=== PATIENT | female | born 1955 | race Two or more races ===

== ENCOUNTER 2022-12-13 09:27 | Emergency (ER) | payer OTHER ==
[~2022-12-13] VITALS: Ht 167.6 cm; Wt 60.3 kg
[2022-12-13] MEDS ORDERED: HYDROCHLOROTHIA50 MG PO (09:41)
[2022-12-13 11:29] LABS: HEMATOCRIT 43.1 % (36.0-45.00); HEMOGLOBIN 15.3 g/dL (12.0-15.00); MEAN CELL VOLUME 90.6 fL (80.00-100.00); MEAN CORPUSCULAR HEMOGLOBIN 32.2 pg (27.00-32.0); MEAN CORPUSCULAR HGB CONC 35.6 g/dl (32.0-36.0); PLATELET COUNT 214 K/uL (150-450); RED BLOOD COUNT 4.75 M/uL (4.00-6.00); RED CELL DISTRIBUTION WIDTH 13.1 % (11.5-14.5)
[2022-12-13 11:57] LABS: CALCIUM 9.6 mg/dL (8.5-10.1); CREATININE SERUM 0.7 mg/dL (0.55-1.02); GFR 83.46; POTASSIUM 3.33 mEq/L (3.5-5.1)
== END 2022-12-13 14:25 | disposition home or self-care (01) ==
LOC: ER 09:27
PROVIDERS: Emergency Medicine
DX: K29.60 Other gastritis without bleeding (principal); I10 Essential (primary) hypertension; Z88.0 Allergy status to penicillin
CPT/HCPCS: 36415; 96365; 96366; 99283; J2405; J3490